=== PATIENT | female | born 1990 | race Caucasian/White ===

== ENCOUNTER 2018-05-07 23:42 | Emergency (ER) | payer SELFPAY ==
[~2018-05-07] VITALS: Ht 165.1 cm; Wt 65.8 kg
[2018-05-08 00:56] LABS: APPEARANCE,URINE SL CLOUDY (CLEAR); BASOPHILS % (AUTO) 0.5 % (0.0-2.0); BILIRUBIN,URINE NEGATIVE (NEGATIVE); BLOOD, URINE 3+ Ery/uL (NEGATIVE); COLOR,URINE OTHER (YELLOW); EOSINOPHILS % (AUTO) 0.6 % (0.0-6.0); HEMATOCRIT 44 % (33-45); HEMOGLOBIN 14.7 g/dL (11.5-14.8); KETONES,URINE NEGATIVE (NEGATIVE); LEUKOCYTE ESTERASE ,URINE 1+ (NEGATIVE); LYMPHOCYTES # (AUTO) 3.3 /CMM (0.8-4.8); LYMPHOCYTES % (AUTO) 34.3 % (20.0-44.0); MEAN CORPUSCULAR HEMOGLOBIN 31 PG (26.0-33.0); MEAN CORPUSCULAR HGB CONC 34 g/dl (31.0-36.0); MEAN CORPUSCULAR VOLUME 93 fL (82-100); MONOCYTES # (AUTO) 0.6 /CMM (0.1-1.30); MONOCYTES % (AUTO) 6.2 % (2.0-12.0); NEUTROPHILS # (AUTO) 5.6 /CMM (1.8-8.9); NEUTROPHILS % (AUTO) 58.4 % (43.0-81.0); NITRITE, URINE NEGATIVE (NEGATIVE); PLATELET COUNT (AUTO) 235 /CMM (150-450); PROTEIN,URINE NEGATIVE (NEGATIVE); RDW COEFFICIENT OF VARIATION 12.8 (11.5-15.0); UGLUCOSE NEGATIVE (NEGATIVE); UROBILINOGEN,URINE 0.2 EU/dL (0.2); WHITE BLOOD COUNT (AUTO) 9.5 K/uL (4.3-11.0)
[2018-05-08 01:07] LABS: CALCIUM, SERUM 9.5 mg/dL (8.5-10.1); CREATININE 0.7 mg/dL (0.6-1.3); POTASSIUM 3.9 mmol/L (3.5-5.1)
[2018-05-08 01:12] LABS: INR 0.91 (0.87-1.13)
--- NOTE | 2018-05-08 01:15 | NUR ---
PT TO ER C/O VAGINAL BLEEDING AND PELVIC CRAMPING S/P LIFTING HEAVY OBJECT. NO IMMEDIATE SIGNS OF DISTRESS NOTED. PT VITAL SIGNS WITHIN NORMAL LIMITS. PT TO ER BED 17, CHANGED INTO GOWN AND CONNECTED TO MONITOR.
[2018-05-08 01:25] LABS: RBC,URINE 0-2 /HPF (0-2)
[2018-05-08 01:26] LABS: BACTERIA,URINE Few /HPF (None Seen); SQUAMOUS EPITHELIAL CELL,UR Moderate /HPF (None Seen)
--- NOTE | 2018-05-08 03:00 | NUR ---
PT OK TO DISCHARGE HOME PER DR COPELAND. Patient discharged to home in stable condition. Written and verbal after care instructions given. Patient verbalizes understanding of instruction.Patient is awake and alert to self, day, and place. PT ambulatory with a steady gait
[2018-05-08 05:21] VITALS: BP 118/71
== END 2018-05-08 03:45 | disposition home or self-care (01) ==
LOC: ER 23:43
DX: O20.0 Threatened abortion (principal); Z88.0 Allergy status to penicillin
CPT/HCPCS: 36415; 76856-TC; 80048-TC; 81000-TC; 84702-TC; 85025-TC; 85730-TC; 87086-TC; A4606; Z7610

== ENCOUNTER 2018-05-11 13:03 | Emergency (ER) | payer MEDICAID, OTHER ==
[~2018-05-11] VITALS: Ht 165.1 cm; Wt 51.7 kg
--- NOTE | 2018-05-11 13:10 | NUR ---
PT CAME IN WITH C/O VAGINAL BLEEDING X 3 DAYS, 8 WEEKS , A1. SEEN BY PA FOR EVAL. VSS. SAFETY AND COMFORT MEASURES PROVIDED. WILL MONITOR.
[2018-05-11] MEDS ORDERED: ACETAMINOPHEN 325 MG TABLET PO ONE (13:30)
--- NOTE | 2018-05-11 13:45 | NUR ---
IV ACCESS STARTED. MEDICATED ORDERED.
[2018-05-11 13:54] LABS: BASOPHILS % (AUTO) 0.3 % (0.0-2.0); EOSINOPHILS % (AUTO) 0.1 % (0.0-6.0); HEMATOCRIT 29 % (33-45); HEMOGLOBIN 10.1 g/dL (11.5-14.8); LYMPHOCYTES # (AUTO) 1.3 /CMM (0.8-4.8); LYMPHOCYTES % (AUTO) 12.7 % (20.0-44.0); MEAN CORPUSCULAR HEMOGLOBIN 31 PG (26.0-33.0); MEAN CORPUSCULAR HGB CONC 35 g/dl (31.0-36.0); MEAN CORPUSCULAR VOLUME 90 fL (82-100); MONOCYTES # (AUTO) 0.3 /CMM (0.1-1.30); MONOCYTES % (AUTO) 2.6 % (2.0-12.0); NEUTROPHILS # (AUTO) 8.8 /CMM (1.8-8.9); NEUTROPHILS % (AUTO) 84.3 % (43.0-81.0); PLATELET COUNT (AUTO) 198 /CMM (150-450); RDW COEFFICIENT OF VARIATION 11.8 (11.5-15.0); RED BLOOD CELL COUNT(AUTO) 3.23 MIL/uL (4.0-5.2); WHITE BLOOD COUNT (AUTO) 10.4 K/uL (4.3-11.0)
[2018-05-11 14:04] LABS: CREATININE 0.8 mg/dL (0.6-1.3); POTASSIUM 4.2 mmol/L (3.5-5.1)
[2018-05-11] MEDS ORDERED: ACETAMINOPHEN ES 500 MG TABLET ONE (14:11)
[2018-05-11] MEDS ORDERED: IV NS 0.9% 1,000 ML BAG IV ONE ×2 (14:30)
--- NOTE | 2018-05-11 15:08 | NUR ---
CALLED , LEFT MESSAGE ON VOICEMAIL
--- NOTE | 2018-05-11 16:08 | NUR ---
CALLED [facility], PRESENTED PT, TRANSFERRED CALL TO ALICIA CHOUDHURY).
--- NOTE | 2018-05-11 16:21 | NUR ---
CALLED , TRANSFERRED CALL TO ALICIA CHOUDHURY)
--- NOTE | 2018-05-11 16:33 | NUR ---
CALLED [facility], SPOKE WITH BLAZE, LEOPOLDO PT, SHE SAID THAT WOULD HAVE TO CALL THEM TO TELL THEM THAT SHE ACCEPTS THE PT THERE AND SHE TOLD ME THEY HAVE NO BEDS. SHE REQUESTED ME TO FAX FACESHEET AND ALICIA LYON NOTE TO HER AT [phone].
--- NOTE | 2018-05-11 16:40 | NUR ---
CALLED [facility], SPOKE WITH MITA, PRESENTED PT, TRANSFERRED CALL TO ALICIA CHOUDHURY).
[2018-05-11 17:54] LABS: BASOPHILS % (AUTO) 0.4 % (0.0-2.0); EOSINOPHILS % (AUTO) 0.2 % (0.0-6.0); HEMATOCRIT 27 % (33-45); HEMOGLOBIN 9.1 g/dL (11.5-14.8); LYMPHOCYTES # (AUTO) 1.7 /CMM (0.8-4.8); MEAN CORPUSCULAR HEMOGLOBIN 31 PG (26.0-33.0); MEAN CORPUSCULAR HGB CONC 34 g/dl (31.0-36.0); MEAN CORPUSCULAR VOLUME 90 fL (82-100); MONOCYTES # (AUTO) 0.2 /CMM (0.1-1.30); MONOCYTES % (AUTO) 1.9 % (2.0-12.0); NEUTROPHILS # (AUTO) 7.3 /CMM (1.8-8.9); NEUTROPHILS % (AUTO) 79.5 % (43.0-81.0); PLATELET COUNT (AUTO) 189 /CMM (150-450); RDW COEFFICIENT OF VARIATION 12.1 (11.5-15.0); RED BLOOD CELL COUNT(AUTO) 2.93 MIL/uL (4.0-5.2); WHITE BLOOD COUNT (AUTO) 9.2 K/uL (4.3-11.0)
--- NOTE | 2018-05-11 18:00 | NUR ---
CALLED , LEFT MESSAGE INFORMING HER TO CALL THE TRANSFER CENTER AT [facility] IF SHE STILL ACCEPTS PT, ALSO UPDATED HER WITH PT'S INSURANCE.
--- NOTE | 2018-05-11 18:08 | NUR ---
spoke to lawanda at [facility]. dr shannon accepted patient. awaiting for transfer info from [place].
--- NOTE | 2018-05-11 18:19 | NUR ---
RECEIVED CALL FROM DEONTE AT [facility], PT ACCEPTED TO [facility] BY , GOING TO ROOM 301, NUMBER FOR REPORT IS [phone], [facility] ETA IS 75 MIN.
--- NOTE | 2018-05-11 18:23 | NUR ---
CALLED [facility] TO [facility] TRANSFER REQUEST.
--- NOTE | 2018-05-11 18:42 | NUR ---
REPORT GIVEN TO SHAWN FRENCH GOODMAN FOR TRANSFER TO ROOM 301.
--- NOTE | 2018-05-11 19:22 | NUR ---
REPORT GIVEN TO PAWAN SANTOS FOR [facility].
[2018-05-11 20:00] VITALS: BP 109/56
--- NOTE | 2018-05-11 20:17 | NUR ---
REPORT GIVEN TO [facility] EMT. PT BEING TRANSFERED OUT. VSS. PT AMBULATED TO THE [facility] WITH A STEADY GAIT.
== END 2018-05-11 20:19 ==
LOC: ER 13:05
DX: O03.4 Incomplete spontaneous abortion without complication (principal); O99.011 Anemia complicating pregnancy, first trimester; O26.51 Maternal hypotension syndrome, first trimester; O26.891 Other specified pregnancy related conditions, first trimester; R42 Dizziness and giddiness; Z88.0 Allergy status to penicillin; Z3A.01 Less than 8 weeks gestation of pregnancy
CPT/HCPCS: 36415; 76856; 80048; 84702; 85025 ×2; 86850; 93005; 96360; 99285; A4606; J7030; Z7610